=== PATIENT | female | born 1990 | race Caucasian/White ===

== ENCOUNTER 2019-01-20 19:07 | Emergency (ER) | payer OTHER ==
[~2019-01-20] VITALS: Ht 157.5 cm; Wt 53.1 kg
[~2019-01-20 19:07] MED LIST: HUM7525 SQ; HUMULIN 70/303 ML SC; HUMULIN R100 U/1 M1 SC; LEVEMIR100 U/M1 SQ
[2019-01-20 19:21] VITALS: Ht 157.5 cm; Wt 53.1 kg
[2019-01-20 23:00] VITALS: BP 137/97
== END 2019-01-20 23:00 | disposition home or self-care (01) ==
LOC: ED 19:07
DX: S16.1XXA Strain of muscle, fascia and tendon at neck level, initial encounter (principal); S20.219A Contusion of unspecified front wall of thorax, initial encounter; E10.9 Type 1 diabetes mellitus without complications; K21.9 Gastro-esophageal reflux disease without esophagitis; V43.92XA Unspecified car occupant injured in collision with other type car in traffic accident, initial encounter; Y93.89 Activity, other specified; Y92.89 Other specified places as the place of occurrence of the external cause; Y99.8 Other external cause status